=== PATIENT | male | born 1990 | race Caucasian/White ===

== ENCOUNTER 2024-08-17 18:23 | Emergency (ER) | payer SELFPAY ==
[2024-08-17 18:33] VITALS: BP 132/78; PULSE 76; RESP 18; TEMP 36.6; O2SAT 98; BMI 36.7
--- NOTE | 2024-08-17 21:06 | PC.NURSE ---
Patient requesting to leave without being seen. Notified patient that he was next to come back, patient asked once he is back when he would be seen. Educated patient that there would be additional wait time once in the room but that is is the next step in the process and that the bed would be more comfortable than the chairs. Patient stated that he didn't want to get back to the room and wait 4 more hours and that he could go home and wait for urgent care to open in the morning. Educated patient on risks vs benefits of staying or leaving, patient requesting time that he was leaving to be written on his face sheet as proof that he was at the ED. Wrote this down for him Left at 2105 with Dot RN present. Patient ambulated out of building under his own power.
== END 2024-08-17 21:05 | disposition left against medical advice (07) ==
PROVIDERS: Emergency Provider Emergency Medicine
DX: M54.9 Dorsalgia, unspecified (principal)
CPT/HCPCS: 99281